=== PATIENT | female | born 2000 | race Caucasian/White ===

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

== ENCOUNTER 2024-03-11 15:01 | Emergency (ER) | payer MEDICAID ==
[~2024-03-11] VITALS: Ht 175.3 cm; Wt 60.5 kg
[~2024-03-11 15:01] MED LIST changes: -LORA-269 PO; +MIRT7.5T11 PO
[2024-03-11 15:07] VITALS: BP 124/85; PULSE 69; RESP 14; O2SAT 99
[2024-03-11] MEDS ORDERED: ERYT1OIN6 LEFTEYE (15:26)
[2024-03-11 15:36] VITALS: TEMP 98.3
== END 2024-03-11 15:37 | disposition home or self-care (01) ==
LOC: ER 15:01
DX: H00.025 Hordeolum internum left lower eyelid (principal); F32.A Depression, unspecified; Z91.018 Allergy to other foods; Z79.899 Other long term (current) drug therapy
CPT/HCPCS: 99283